=== PATIENT | male | born 1990 | race Caucasian/White ===

== ENCOUNTER → 2016-08-16 | Outpatient (CLI) | payer OTHER, MEDICAID | END | disposition home or self-care (01) | LOC: M OUTALCOH 09:58 | PROVIDERS: ATTEND Psychiatry & Neurology Psychiatry | DX: F11.20 Opioid dependence, uncomplicated (principal) ==

== ENCOUNTER 2016-08-18 10:30 | Emergency (ER) | payer OTHER, MEDICAID ==
[2016-08-18] MEDS ORDERED: ACETAMINOPHEN 325 MG TAB As Ordered ONE (10:47)
[2016-08-18] MEDS ORDERED: IBUPROFEN 600 MG TAB As Ordered ONE (11:19)
[2016-08-18 11:42] LABS: BASO % 0.3 % (0.0-1.0); EOS # 0.1 K/mm3 (0.0-0.50); EOS % 1.4 % (0.0-3.0); LARGE UNSTAINED CELL % 0.6 % (0.0-4.0); LYMPH # 0.3 K/mm3 (1.5-6.5); LYMPH % 4.2 % (24.0-44.0); MEAN CORPUSCULAR HGB CONC 34.4 g/dl (32.0-36.5); MEAN CORPUSCULAR VOLUME 87.3 fl (80.0-96.0); MONO # 0.1 K/mm3 (0.0-0.8); MONO % 1.2 % (0.0-5.0); NEUTROPHILS # 6.5 K/mm3 (1.8-7.7); NEUTROPHILS % 92.4 % (36.0-66.0); PLATELET COUNT, AUTOMATED 175 k/mm3 (150-450); RED CELL DISTRIBUTION WIDTH 12.5 % (11.5-14.5)
[2016-08-18 12:06] LABS: ALBUMIN 3.6 GM/DL (3.2-5.2); ALBUMIN/GLOBULIN RATIO 0.92 (1.00-1.93); ALKALINE PHOSPHATASE 101 U/L (45-117); ALT/SGPT 37 U/L (12-78); AMYLASE 70 U/L (25-115); ANION GAP 7 MEQ/L (8-16); AST/SGOT 20 U/L (15-37); BILIRUBIN,DIRECT 0.2 MG/DL (0.0-0.2); BILIRUBIN,TOTAL 0.5 MG/DL (0.2-1.0); BLOOD UREA NITROGEN 12 MG/DL (7-18); CALCIUM LEVEL 8.6 MG/DL (8.5-10.1); CARBON DIOXIDE LEVEL 27 MEQ/L (21-32); CHLORIDE LEVEL 103 MEQ/L (98-107); CREATININE FOR GFR 1.04 MG/DL (0.70-1.30); GLOMERULAR FILTRATION RATE > 60.0 (>60); GLUCOSE, FASTING 102 MG/DL (70-105); POTASSIUM SERUM 3.7 MEQ/L (3.5-5.1); SODIUM LEVEL 137 MEQ/L (136-145); TOTAL PROTEIN 7.5 GM/DL (6.4-8.2)
--- NOTE | 2016-08-18 12:21 | REP ---
Clinical: Chest pain and fever . Comparison: 03/28/2012. Technique: PA and lateral. Findings: The mediastinum and cardiac silhouette are normal. The lung jones are clear and without acute consolidation, effusion, or pneumothorax. The skeletal structures are intact and normal. Impression: 1. No acute cardiopulmonary process. Signed by Kvng Saleh MD 08/18/2016 12:12 P
[2016-08-18 13:18] LABS: AMPHETAMINES LEVEL URINE NEGATIVE (NEGATIVE); BENZODIAZEPINES URINE NEGATIVE (NEGATIVE); COCAINE METABOLITE URINE NEGATIVE (NEGATIVE); CONTROL LINE INT CTR LINE PRESENT; METHADONE URINE NEGATIVE (NEGATIVE); OPIATES URINE NEGATIVE (NEGATIVE); TRICYCLIC ANTIDEPRESS URINE NEGATIVE (NEGATIVE)
[2016-08-18 13:24] LABS: T UPTAKE 32 % (33-40)
--- NOTE | 2016-08-18 14:18 | EDDOCDS ---
Physician Documentation [facility] Name: Calvin Brown Age: 26 yrs Sex: Male : 1990 Arrival Date: 08/18/2016 Time: 10:30 Bed I7 / Private MD: Kylah Pablo K. Disposition: 08/18/16 13:56 Discharged to Home/Self Care. Impression: Viral infection, unspecified, Opioid abuse. - Condition is Stable. - Discharge Instructions: Opioid Withdrawal, Viral Infections, Opioid Use Disorder. - Medication Reconciliation, Local Pharmacy Hours form. - Follow up: Kylah Pablo; When: 1 - 2 days; Reason: Recheck today's complaints. Follow up: Private Physician; When: As previously arranged; Reason: Continuance of care. Follow up: Emergency Department; When: As needed; Reason: Worsening of conditions. - Problem is new. - Symptoms have improved. - Notes: go directly to outpatient opiod dependency office. call Kylah Pablo's office for follow up for Tuesday. return to ER if worsening condition Historical: - Allergies: No known drug Allergies; - Home Meds: 1. none - PMHx: Anxiety; - PSHx: Tonsillectomy; - Social history: Smoking status: Chewing Tobacco No barriers to communication noted, The patient speaks fluent Albanian, Speaks appropriately for age. - Family history: Not pertinent. - : The pt / caregiver states he / she is not on anticoagulants. Home medication list is obtained from the patient. - Exposure Risk Screening:: None identified. Vital Signs: 08/18 10:32 BP 155 / 74; Pulse 123; Resp 20; Temp 103.9(O); Pulse Ox 98% ; Weight 76.2 kg / 167.99 cmb lbs; Height 6 ft. 2 in. (187.96 cm); Pain 8/10; 11:20 Temp 101.0(O); jrd 12:43 BP 124 / 71; Pulse 82; Resp 18; Temp 99(O); Pulse Ox 98% on R/A; srm 14:03 BP 131 / 69; Pulse 65; Resp 16; Temp 99.1(O); Pulse Ox 100% on R/A; Pain 0/10; jrd 10:32 Body Mass Index 21.57 (76.20 kg, 187.96 cm) cmb MDM: 10:43 Acetaminophen Tablet 975 mg PO once ordered. ar2 11:01 IV Saline Lock ordered. ar2 11:01 -Blood Culture (Adults Only), peripheral from different site, or from device/port/PICC ar2 etc. if present ordered. 11:01 NS 0.9% 1000 ml IV at bolus once ordered. ar2 11:01 Ibuprofen 600 mg PO once ordered. ar2 11:02 -Blood Culture Ordered. EDMS 11:02 Amylase Ordered. EDMS 11:03 CBC with Diff Ordered. EDMS 11:03 Lactic Acid (Mejia tube on ice) Ordered. EDMS 11:03 Liver Profile Ordered. EDMS 11:03 MED Profile Ordered. EDMS 11:03 Urinalysis Ordered. EDMS 11:03 Urine Culture Ordered. EDMS 11:03 -Influenza A&B Rapid Antigen - Nose Ordered. EDMS 11:04 Chest, 2 View (pa\E\lat) Ordered. EDMS 11:12 -Blood Culture (Adults Only), peripheral from different site, or from device/port/PICC jrd etc. if present complete. 11:14 BLOOD CULTURES Ordered. EDMS 11:15 Financial registration complete. mm15 11:16 [facility] Payment Agreement was scanned into Needle and attached to record. mm15 11:19 Consult PFS/PSA/Patch Sander: Resources/Social Work ordered. ar2 11:20 Urine Toxicology Ordered. EDMS 11:53 Consult PFS/PSA/Patch Sander: Resources/Social Work complete. ac 12:09 CBC with Diff Reviewed. ar2 12:09 Liver Profile Reviewed. ar2 12:09 MED Profile Reviewed. ar2 12:09 Amylase Reviewed. ar2 12:09 -Influenza A&B Rapid Antigen - Nose Reviewed. ar2 12:14 Thyroid Profile Ordered. EDMS 12:15 Creatine Phosphokinase Ordered. EDMS 12:45 Lactic Acid (Mejia tube on ice) Reviewed. ar2 12:55 PSA Outpatient Referrals was scanned into Needle and attached to record. jl 13:06 CREATINE PHOSPHOKINASE Ordered. EDMS 13:06 THYROID PROFILE Ordered. EDMS 13:22 Liver Profile Reviewed. ar2 13:22 MED Profile Reviewed. ar2 13:22 Amylase Reviewed. ar2 13:22 Urine Toxicology Reviewed. ar2 13:22 Chest, 2 View (pa\E\lat) Reviewed. ar2 13:24 Urinalysis Reviewed. ar2 13:44 Liver Profile Reviewed. ar2 13:44 MED Profile Reviewed. ar2 13:44 THYROID PROFILE Reviewed. ar2 13:44 Amylase Reviewed. ar2 13:44 CREATINE PHOSPHOKINASE Reviewed. ar2 13:56 BLOOD CULTURES Ordered. EDMS Administered Medications: 10:49 Drug: Acetaminophen 975 mg [acetaminophen 325 mg tablet (3 tabs)] Route: PO; ck1 11:26 Drug: NS 0.9% 1000 ml [sodium chloride 0.9 % intravenous solution] Route: IV; Rate: srm bolus; Site: right antecubital; 14:11 Follow up: IV Status: Completed infusion srm 11:26 Drug: Ibuprofen 600 mg [ibuprofen 600 mg tablet (1 tabs)] Route: PO; srm 12:43 Follow up: BP 124 / 71; Pulse 82 bpm; Resp 18 bpm; Temp 99 Oral; Pulse Ox 98% RA srm Signatures: Dispatcher Med[employer] EDMS Nicole Manley RN RN srm Leonard, Mikhail, PSA PSA Ari López, PSA PSA Jason Mercer RN RN dy Kim-Ashcraft, Connie, RN RN ck1 Elmer Munoz, PA-Jesse PA-Jesse ar2 Jung Schroeder mm15 Cristino Muñiz PCA PCA jrd The chart was reviewed and I authenticate all verbal orders and agree with the evaluation and treatment provided.Corrections: (The following items were deleted from the chart) 13:16 11:19 BLOOD CULTURES ordered. EDMS EDMS Attachments: 11:16 [facility] [place] mm15 MTDD
--- NOTE | 2016-08-18 14:18 | EDDOCDS ---
Nurse's Notes [facility] Name: Calvin Brown Age: 26 yrs Sex: Male : 1990 Arrival Date: 08/18/2016 Time: 10:30 Bed I7 Private MD: Kylah Pablo K. Diagnosis: Viral infection, unspecified;Opioid abuse Presentation: 08/18 10:36 Presenting complaint: Patient states: has history of abusing opiates. last used was dy Tuesday. since Tuesday has been having fevers, shakes, nausea, vomiting, diarrhea. Adult Sepsis Screening: The patient does not have new or worsening altered mentation. Patient's respiratory rate is less than 22. Systolic blood pressure is greater than 100. Patient has a qSOFA score of 0- Negative Sepsis Screen. Suicide/Homicide risk assessment- The patient reports that he/she has a recent or current history of substance abuse. Status: Patient is not a nursing service director or dependent. Transition of care: patient was not received from another setting of care. 10:36 Acuity: ADILSON Level 3 dy 10:36 Method Of Arrival: Walkin/Carried/Asstd dy Triage Assessment: 10:38 General: Appears uncomfortable, Behavior is anxious. Pain: Location: generalized. HIV dy screening NA for this visit Offered previously. Historical: - Allergies: No known drug Allergies; - Home Meds: 1. none - PMHx: Anxiety; - PSHx: Tonsillectomy; - Social history: Smoking status: Chewing Tobacco No barriers to communication noted, The patient speaks fluent Welsh, Speaks appropriately for age. - Family history: Not pertinent. - : The pt / caregiver states he / she is not on anticoagulants. Home medication list is obtained from the patient. - Exposure Risk Screening:: None identified. Screenin:50 Screening information is obtained from the patient. Fall risk: No risks identified. ck1 Assistance ADL's: requires no assistance with activities of daily living. Abuse/DV Screen: The patient / caregiver reports he/she is: not in a situation that causes fear, pain or injury. Nutritional screening: No deficits noted. Advance Directives: Currently, there is no health care proxy. home support is adequate. Assessment: 10:49 General: Appears in no apparent distress, comfortable, Behavior is appropriate for age, ck1 cooperative. Pain: Location: generalized Pain currently is 8 out of 10 on a pain scale. Quality of pain is described as aching. Neurological: Level of Consciousness is awake, alert, obeys commands, Oriented to person, place, time. Respiratory: Respiratory effort is unlabored, Respiratory pattern is regular, symmetrical. GI: Reports nausea, Denies vomiting. Derm: Skin is healthy with good turgor, Skin is pink, warm & dry. 11:34 General: Appears in no apparent distress, Behavior is appropriate for age, cooperative. srm Derm: scarring note to inner aspect RAC. 11:34 GI: Abdomen is non- distended Bowel sounds present X 4 quads. Abd is soft and non srm tender X 4 quads. 12:43 General: Appears in no apparent distress, Behavior is appropriate for age, cooperative. srm Neurological: No deficits noted. EENT: No deficits noted. Cardiovascular: No deficits noted. Respiratory: No deficits noted. GI: No deficits noted. 14:14 Reassessment: Patient states feeling better. Patient states symptoms have improved. srm General: Appears in no apparent distress, Behavior is appropriate for age, cooperative. Neurological: No deficits noted. EENT: No deficits noted. Cardiovascular: No deficits noted. Respiratory: No deficits noted. GI: No deficits noted. Social Work Consult: 12:42 Social Work Note: Pt presented c/o withdrawal from heroin. Pt states his last use was ac Tuesday. Pt reports he is currently enrolled in [facility] outpatient addiction services, is trying to get in to see Dr. Munoz for suboxone treatment. Pt denies SI/HI, no AH/VH, no other drug use reported. Pt to f/u with Dr. Munoz as needed. No further intervention required at this time. Vital Signs: 10:32 BP 155 / 74; Pulse 123; Resp 20; Temp 103.9(O); Pulse Ox 98% ; Weight 76.2 kg; Height 6 cmb ft. 2 in. (187.96 cm); Pain 8/10; 11:20 Temp 101.0(O); jrd 12:43 BP 124 / 71; Pulse 82; Resp 18; Temp 99(O); Pulse Ox 98% on R/A; srm 14:03 BP 131 / 69; Pulse 65; Resp 16; Temp 99.1(O); Pulse Ox 100% on R/A; Pain 0/10; jrd 10:32 Body Mass Index 21.57 (76.20 kg, 187.96 cm) cmb Vitals: 10:32 Log In Time: August 18, 2016 at 10:21. cmb ED Course: 10:32 Patient visited by Estee Roca. cmb 10:32 Kylah Pablo is Private Physician. cmb 10:32 Patient moved to Waiting cmb 10:34 Patient moved to Pre RCE cmb 10:37 Triage Initiated dy 10:44 Patient moved to I7 / 29 mlb1 10:46 Patient visited by Piper Carmichael RN. ck1 10:49 Elmer Munoz PA-C is PHCP. ar2 10:50 Bharat Quigley MD is Attending Physician. ar2 10:50 The patient / caregiver is instructed regarding the plan of care and ED course. ck1 10:51 Patient visited by Elmer Munoz PA-C. ar2 11:16 [facility] Payment Agreement was scanned into GPMESS and attached to record. mm15 11:16 Accompanied by Family Member, Patient has correct armband on for positive srm identification. Placed in gown. Bed in low position. Call light in reach. 11:16 Inserted saline lock: 20 gauge in right antecubital area and blood collected. srm 11:17 -Influenza A&B Rapid Antigen - Nose Sent. srm 11:17 -Blood Culture Sent. srm 11:20 Patient visited by Cristino Muñiz PCA. jrd 11:33 Amylase Sent. srm 11:33 CBC with Diff Sent. srm 11:33 Lactic Acid (Mejia tube on ice) Sent. srm 11:33 Liver Profile Sent. srm 11:35 Patient visited by Nicole Manley, DOMO. srm 11:54 Notified social media content specialist of a meaagn . srm 11:55 Patient visited by Nicole Manley, DOMO. srm 12:42 Urine Toxicology Sent. srm 12:43 Patient visited by Nicole Manley, DOMO. srm 12:43 Thyroid Profile Sent. srm 12:43 Creatine Phosphokinase Sent. srm 12:43 Urinalysis Sent. srm 12:43 Urine Culture Sent. srm 12:55 PSA Outpatient Referrals was scanned into GPMESS and attached to record. jl 13:14 Chest, 2 View (pa\E\lat) Returned. EDMS 13:55 Kylah Pablo is Referral Physician. ar2 14:03 Patient visited by Cristino Muñiz PCA. jrd 14:05 BLOOD CULTURES Sent. jrd 14:14 Discontinued lock intact, bleeding controlled, pressure dressing applied, No srm redness/swelling at site. No procedures done that require assistance. Administered Medications: 10:49 Drug: Acetaminophen 975 mg [acetaminophen 325 mg tablet (3 tabs)] Route: PO; ck1 11:26 Drug: NS 0.9% 1000 ml [sodium chloride 0.9 % intravenous solution] Route: IV; Rate: srm bolus; Site: right antecubital; 14:11 Follow up: IV Status: Completed infusion srm 11:26 Drug: Ibuprofen 600 mg [ibuprofen 600 mg tablet (1 tabs)] Route: PO; srm 12:43 Follow up: BP 124 / 71; Pulse 82 bpm; Resp 18 bpm; Temp 99 Oral; Pulse Ox 98% RA srm Intake: 14:14 IV: 1000.00ml (NS); Total: 1000.00ml. srm Order Results: Lab Order: Amylase; SPEC'M 08/18/16 11:26 Test: AMYLASE; Value: 70; Range: 25-115; Units: U/L; Status: F Lab Order: CBC with Diff; SPEC'M 08/18/16 11:26 Test: WHITE BLOOD COUNT; Value: 7.0; Range: 4.0-10.0; Units: K/mm3; Status: F Test: RED BLOOD COUNT; Value: 4.93; Range: 4.30-6.10; Units: M/mm3; Status: F Test: HEMOGLOBIN; Value: 14.8; Range: 14.0-18.0; Units: g/dl; Status: F Test: HEMATOCRIT; Value: 43.0; Range: 42.0-52.0; Units: %; Status: F Test: MEAN CORPUSCULAR VOLUME; Value: 87.3; Range: 80.0-96.0; Units: fl; Status: F Test: MEAN CORPUSCULAR HEMOGLOBIN; Value: 30.0; Range: 27.0-33.0; Units: pg; Status: F Test: MEAN CORPUSCULAR HGB CONC; Value: 34.4; Range: 32.0-36.5; Units: g/dl; Status: F Test: RED CELL DISTRIBUTION WIDTH; Value: 12.5; Range: 11.5-14.5; Units: %; Status: F Test: PLATELET COUNT, AUTOMATED; Value: 175; Range: 150-450; Units: k/mm3; Status: F Test: NEUTROPHILS %; Value: 92.4; Range: 36.0-66.0; Abnormal: Above high normal; Units: %; Status: F Test: LYMPH %; Value: 4.2; Range: 24.0-44.0; Abnormal: Below low normal; Units: %; Status: F Test: MONO %; Value: 1.2; Range: 0.0-5.0; Units: %; Status: F Test: EOS %; Value: 1.4; Range: 0.0-3.0; Units: %; Status: F Test: BASO %; Value: 0.3; Range: 0.0-1.0; Units: %; Status: F Test: LARGE UNSTAINED CELL %; Value: 0.6; Range: 0.0-4.0; Units: %; Status: F Test: NEUTROPHILS #; Value: 6.5; Range: 1.8-7.7; Units: K/mm3; Status: F Test: LYMPH #; Value: 0.3; Range: 1.5-6.5; Abnormal: Below low normal; Units: K/mm3; Status: F Test: MONO #; Value: 0.1; Range: 0.0-0.8; Units: K/mm3; Status: F Test: EOS #; Value: 0.1; Range: 0.0-0.50; Units: K/mm3; Status: F Test: BASO #; Value: 0.0; Range: 0.0-0.2; Units: K/mm3; Status: F Test: LARGE UNSTAINED CELL #; Value: 0.0; Range: 0.0-0.4; Units: K/mm3; Status: F Lab Order: Lactic Acid (Mejia tube on ice); SPEC'M 08/18/16 11:26 Test: LACTIC ACID LEVEL, LACTATE; Value: 1.4; Range: 0.4-2.0; Units: MMOL/L; Status: F Lab Order: Liver Profile; SPEC'M 08/18/16 11:26 Test: AST/SGOT; Value: 20; Range: 15-37; Units: U/L; Status: F Test: ALT/SGPT; Value: 37; Range: 12-78; Units: U/L; Status: F Test: ALKALINE PHOSPHATASE; Value: 101; Range: 45-117; Units: U/L; Status: F Test: BILIRUBIN,TOTAL; Value: 0.5; Range: 0.2-1.0; Units: MG/DL; Status: F Test: BILIRUBIN,DIRECT; Value: 0.2; Range: 0.0-0.2; Units: MG/DL; Status: F Test: TOTAL PROTEIN; Value: 7.5; Range: 6.4-8.2; Units: GM/DL; Status: F Test: ALBUMIN; Value: 3.6; Range: 3.2-5.2; Units: GM/DL; Status: F Test: ALBUMIN/GLOBULIN RATIO; Value: 0.92; Range: 1.00-1.93; Abnormal: Below low normal; Status: F Lab Order: MED Profile; SPEC'M 08/18/16 11:26 Test: GLUCOSE, FASTING; Value: 102; Range: 70-105; Units: MG/DL; Status: F Test: BLOOD UREA NITROGEN; Value: 12; Range: 7-18; Units: MG/DL; Status: F Test: CREATININE FOR GFR; Value: 1.04; Range: 0.70-1.30; Units: MG/DL; Status: F Test: GLOMERULAR FILTRATION RATE; Value: > 60.0; Range: >60; Status: F Test: SODIUM LEVEL; Value: 137; Range: 136-145; Units: MEQ/L; Status: F Test: POTASSIUM SERUM; Value: 3.7; Range: 3.5-5.1; Units: MEQ/L; Status: F Test: CHLORIDE LEVEL; Value: 103; Range: 98-107; Units: MEQ/L; Status: F Test: CARBON DIOXIDE LEVEL; Value: 27; Range: 21-32; Units: MEQ/L; Status: F Test: ANION GAP; Value: 7; Range: 8-16; Abnormal: Below low normal; Units: MEQ/L; Status: F Test: CALCIUM LEVEL; Value: 8.6; Range: 8.5-10.1; Units: MG/DL; Status: F Test Note: ; Units are mL/min/1.73 m2 Chronic Kidney Disease Staging per NKF: Stage I & II GFR >=60 Normal to Mildly Decreased Stage III GFR 30-59 Moderately Decreased Stage IV GFR 15-29 Severely Decreased Stage V GFR <15 Very Little GFR Left ESRD GFR <15 on [employer] Lab Order: Urinalysis; SPEC'M 08/18/16 12:39 Test: APPEARANCE, URINE; Value: CLEAR; Range: CLEAR; Status: F Test: COLOR, URINE; Value: YELLOW; Range: YELLOW; Status: F Test: PH,URINE; Value: 6.0; Range: 5.0-9.0; Units: UNITS; Status: F Test: SPECIFIC GRAVITY URINE AUTO; Value: 1.011; Range: 1.002-1.035; Status: F Test: PROTEIN, URINE AUTO; Value: NEGATIVE; Range: NEGATIVE; Units: mg/dL; Status: F Test: GLUCOSE, URINE (UA) AUTO; Value: NEGATIVE; Range: NEGATIVE; Units: mg/dL; Status: F Test: KETONE, URINE AUTO; Value: NEGATIVE; Range: NEGATIVE; Units: mg/dL; Status: F Test: UROBILINOGEN, URINE AUTO; Value: 0.2; Range: 0.0-2.0; Units: mg/dL; Status: F Test: BILIRUBIN, URINE AUTO; Value: NEGATIVE; Range: NEGATIVE; Status: F Test: NITRITE, URINE AUTO; Value: NEGATIVE; Range: NEGATIVE; Status: F Test: LEUKOCYTE ESTERASE, URINE AUTO; Value: NEGATIVE; Range: NEGATIVE; Status: F Test: BLOOD, URINE BLOOD; Value: NEGATIVE; Range: NEGATIVE; Status: F Test: WBC, URINE AUTO; Value: 2; Range: 0-3; Units: /HPF; Status: F Test: RBC, URINE AUTO; Value: 1; Range: 0-3; Units: /HPF; Status: F Test: BACTERIA, URINE AUTO; Value: 1+; Range: NEGATIVE; Abnormal: Above high normal; Status: F Test: SQUAMOUS EPITHELIAL CELL UR AU; Value: 0; Range: 0-6; Units: /HPF; Status: F Test: MUCUS, URINE; Value: SMALL; Range: NEGATIVE; Status: F Test: HYALINE CAST, URINE AUTO; Value: 0; Range: 0-1; Units: /LPF; Status: F Lab Order: -Influenza A&B Rapid Antigen - Nose; SPEC'M 08/18/16 11:14 Test: INFLUENZA A RAPID SCR by ICA; Value: INFLUENZA A RESULTS NEGATIVE; Status: F Test: INFLUENZA A RAPID SCR by ICA; Value: Comments:; Status: F Test: INFLUENZA B RAPID SCR by ICA; Value: INFLUENZA B RESULTS NEGATIVE; Status: F Test Note: ; The Influenza test is a direct rapid immunoassay for the qualitative detection of Influenza viral antigen. Cell culture (Viral Culture) testing should be considered to confirm NEGATIVE results and to assist in detecting other viruses that can provide similar clinical symptoms. Please contact the lab within 24 hours ([phone] if confirmatory testing is desired. Lab Order: Urine Toxicology; SPEC'M 08/18/16 12:39 Test: AMPHETAMINES LEVEL URINE; Value: NEGATIVE; Range: NEGATIVE; Status: F Test: BARBITURATES URINE; Value: NEGATIVE; Range: NEGATIVE; Status: F Test: BENZODIAZEPINES URINE; Value: NEGATIVE; Range: NEGATIVE; Status: F Test: CANNABINOIDS URINE; Value: NEGATIVE; Range: NEGATIVE; Status: F Test: COCAINE METABOLITE URINE; Value: NEGATIVE; Range: NEGATIVE; Status: F Test: METHADONE URINE; Value: NEGATIVE; Range: NEGATIVE; Status: F Test: OPIATES URINE; Value: NEGATIVE; Range: NEGATIVE; Status: F Test: TRICYCLIC ANTIDEPRESS URINE; Value: NEGATIVE; Range: NEGATIVE; Status: F Test Note: ; ALL PRESUMPTIVE POSITIVE FINDINGS ARE UNCONFIRMED NORMAL VALUES THRESHOLD IN NG/ML AMPHETAMINES 1000 METHAMPHETAMINES 1000 BARBITURATES 300 BENZODIAZEPINES 300 CANNABINOIDS (THC) 50 COCAINE METABOLITE 300 METHADONE 300 OPIATES 300 PHENCYCLIDINE 25 TRICYCLIC ANTIDEPRESSANTS 1000 RESULTS ARE FOR MEDICAL PURPOSES ONLY. ALL URINE SPECIMENS WILL BE SAVED FOR 3 DAYS. IF CONFIRMATION OF A PRESUMPTIVE POSTIVE SCREEN RESULT IS DESIRED, CALL CHEMISTRY ([phone]) AND REQUEST URINE TO BE SENT TO REFERENCE LAB. FOR A LIST OF CLOSELY RELATED COMPOUNDS PLEASE CALL THE LAB. Lab Order: CREATINE PHOSPHOKINASE; SPEC'M 08/18/16 11:26 Test: CPK CREATINE PHOSPHOKINASE; Value: 53; Range: 39-308; Units: U/L; Status: F Lab Order: THYROID PROFILE; SPEC'M 08/18/16 11:26 Test: T UPTAKE; Value: 32; Range: 33-40; Abnormal: Below low normal; Units: %; Status: F Test: THYROXINE (T4); Value: 8.0; Range: 4.5-12.0; Units: UG/DL; Status: F Test: FREE THYROXINE INDEX; Value: 2.6; Range: 1.4-3.8; Units: %; Status: F Test: THYROID STIMULATING HORMONE; Value: 0.892; Range: 0.358-3.740; Units: uIU/ML; Status: F Radiology Order: Chest, 2 View (pa\E\lat) Test: Chest, 2 View (pa\E\lat) REASON FOR EXAMINATION: fever; Clinical: Chest pain and fever .; ; Comparison: 03/28/2012.; ; Technique: PA and lateral.; ; Findings:; The mediastinum and cardiac silhouette are normal. The lung jones are clear and; without acute consolidation, effusion, or pneumothorax. The skeletal structures; are intact and normal.; ; Impression:; 1. No acute cardiopulmonary process.; ; ; Signed by; Kvng Saleh MD 08/18/2016 12:12 P; Outcome: 13:56 Discharge ordered by Provider. ar2 14:16 Discharge Assessment: Patient awake, alert and oriented x 3. No cognitive and/or srm functional deficits noted. Patient verbalized understanding of disposition instructions. patient administered narcotics - no. The following High Risk Discharge criteria are identified: Yes, PSA consult done prior to d/c. Discharged to home ambulatory, with family. Condition: good Condition: stable Condition: improved. Discharge instructions given to patient, Instructed on discharge instructions, follow up and referral plans. Demonstrated understanding of instructions, Pt was receptive of discharge instructions/ teaching. No special radiology studies were completed. Property sent home with patient. 14:17 Patient left the ED. srm Signatures: Dispatcher [employer] EDMS Nicole Manley, RN RN Mikhail Alva, PSA PSA Ari López, PSA PSA Jason Mercer RN RN dy Barney, Michael B RN RN mlb1 Piper Carmichael RN RN ck1 RobertsElmer kunz PA-C PA-C ar2 Estee Roca cmb Jung Schroeder mm15 Cristino Muñiz, [employer] COMMERCIAL CREDIT ANALYST jrd Corrections: (The following items were deleted from the chart) 13:16 11:33 BLOOD CULTURES sent. srm EDMS MTDD
--- NOTE | 2016-08-20 15:18 | EDDOCDS ---
Physician Documentation [facility] Name: Calvin Brown Age: 26 yrs Sex: Male : 1990 Arrival Date: 08/18/2016 Time: 10:30 Bed I7 / Private MD: Kylah Pablo K. Disposition: 08/18/16 13:56 Discharged to Home/Self Care. Impression: Viral infection, unspecified, Opioid abuse. - Condition is Stable. - Discharge Instructions: Opioid Withdrawal, Viral Infections, Opioid Use Disorder. - Medication Reconciliation, Local Pharmacy Hours form. - Follow up: Kylah Pablo; When: 1 - 2 days; Reason: Recheck today's complaints. Follow up: Private Physician; When: As previously arranged; Reason: Continuance of care. Follow up: Emergency Department; When: As needed; Reason: Worsening of conditions. - Problem is new. - Symptoms have improved. - Notes: go directly to outpatient opiod dependency office. call Kylah Pablo's office for follow up for Tuesday. return to ER if worsening condition Historical: - Allergies: No known drug Allergies; - Home Meds: 1. none - PMHx: Anxiety; - PSHx: Tonsillectomy; - Social history: Smoking status: Chewing Tobacco No barriers to communication noted, The patient speaks fluent Romanian, Speaks appropriately for age. - Family history: Not pertinent. - : The pt / caregiver states he / she is not on anticoagulants. Home medication list is obtained from the patient. - Exposure Risk Screening:: None identified. Vital Signs: 08/18 10:32 BP 155 / 74; Pulse 123; Resp 20; Temp 103.9(O); Pulse Ox 98% ; Weight 76.2 kg / 167.99 cmb lbs; Height 6 ft. 2 in. (187.96 cm); Pain 8/10; 11:20 Temp 101.0(O); jrd 12:43 BP 124 / 71; Pulse 82; Resp 18; Temp 99(O); Pulse Ox 98% on R/A; srm 14:03 BP 131 / 69; Pulse 65; Resp 16; Temp 99.1(O); Pulse Ox 100% on R/A; Pain 0/10; jrd 10:32 Body Mass Index 21.57 (76.20 kg, 187.96 cm) cmb MDM: 10:43 Acetaminophen Tablet 975 mg PO once ordered. ar2 11:01 IV Saline Lock ordered. ar2 11:01 -Blood Culture (Adults Only), peripheral from different site, or from device/port/PICC ar2 etc. if present ordered. 11:01 NS 0.9% 1000 ml IV at bolus once ordered. ar2 11:01 Ibuprofen 600 mg PO once ordered. ar2 11:02 -Blood Culture Ordered. EDMS 11:02 Amylase Ordered. EDMS 11:03 CBC with Diff Ordered. EDMS 11:03 Lactic Acid (Mejia tube on ice) Ordered. EDMS 11:03 Liver Profile Ordered. EDMS 11:03 MED Profile Ordered. EDMS 11:03 Urinalysis Ordered. EDMS 11:03 Urine Culture Ordered. EDMS 11:03 -Influenza A&B Rapid Antigen - Nose Ordered. EDMS 11:04 Chest, 2 View (pa\E\lat) Ordered. EDMS 11:12 -Blood Culture (Adults Only), peripheral from different site, or from device/port/PICC jrd etc. if present complete. 11:14 BLOOD CULTURES Ordered. EDMS 11:15 Financial registration complete. mm15 11:16 [facility] Payment Agreement was scanned into [employer] and attached to record. mm15 11:19 Consult PFS/PSA/Animal Care Worker: Resources/Social Work ordered. ar2 11:20 Urine Toxicology Ordered. EDMS 11:53 Consult PFS/PSA/Animal Care Worker: Resources/Social Work complete. ac 12:09 CBC with Diff Reviewed. ar2 12:09 Liver Profile Reviewed. ar2 12:09 MED Profile Reviewed. ar2 12:09 Amylase Reviewed. ar2 12:09 -Influenza A&B Rapid Antigen - Nose Reviewed. ar2 12:14 Thyroid Profile Ordered. EDMS 12:15 Creatine Phosphokinase Ordered. EDMS 12:45 Lactic Acid (Mejia tube on ice) Reviewed. ar2 12:55 PSA Outpatient Referrals was scanned into [employer] and attached to record. jl 13:06 CREATINE PHOSPHOKINASE Ordered. EDMS 13:06 THYROID PROFILE Ordered. EDMS 13:22 Liver Profile Reviewed. ar2 13:22 MED Profile Reviewed. ar2 13:22 Amylase Reviewed. ar2 13:22 Urine Toxicology Reviewed. ar2 13:22 Chest, 2 View (pa\E\lat) Reviewed. ar2 13:24 Urinalysis Reviewed. ar2 13:44 Liver Profile Reviewed. ar2 13:44 MED Profile Reviewed. ar2 13:44 THYROID PROFILE Reviewed. ar2 13:44 Amylase Reviewed. ar2 13:44 CREATINE PHOSPHOKINASE Reviewed. ar2 13:56 BLOOD CULTURES Ordered. EDMS 15:11 T-Sheet-- Draft Copy was scanned into [employer] and attached to record. gb 15:11 Radiology Report was scanned into [employer] and attached to record. gb Administered Medications: 10:49 Drug: Acetaminophen 975 mg [acetaminophen 325 mg tablet (3 tabs)] Route: PO; ck1 11:26 Drug: NS 0.9% 1000 ml [sodium chloride 0.9 % intravenous solution] Route: IV; Rate: srm bolus; Site: right antecubital; 14:11 Follow up: IV Status: Completed infusion srm 11:26 Drug: Ibuprofen 600 mg [ibuprofen 600 mg tablet (1 tabs)] Route: PO; srm 12:43 Follow up: BP 124 / 71; Pulse 82 bpm; Resp 18 bpm; Temp 99 Oral; Pulse Ox 98% RA srm Signatures: Dispatcher [employer] EDMS Nicole Manley, DOMO RN srm Leonard, Mikhail, PSA PSA ac AdonayAri, PSA PSA jl Marilynn Cote, Reg Reg gb Jason Villasenor RN RN dy Kim-Ashcraft, Connie, RN RN ck1 Elmer Munoz, LUCA PARamya ar2 Jung Schroeder mm15 Cristino Muñiz PCA PCA jrd The chart was reviewed and I authenticate all verbal orders and agree with the evaluation and treatment provided.Corrections: (The following items were deleted from the chart) 13:16 11:19 BLOOD CULTURES ordered. EDMS EDMS Attachments: 11:16 [facility] [place] mm15 15:11 T-Sheet-- Draft Copy gb Chart Complete MTDD
--- NOTE | 2016-08-20 15:18 | EDDOCDS ---
Physician Documentation [facility] Name: Calvin Brown Age: 26 yrs Sex: Male : 1990 Arrival Date: 08/18/2016 Time: 10:30 Bed I7 / Private MD: Kylah Pablo K. Disposition: 08/18/16 13:56 Discharged to Home/Self Care. Impression: Viral infection, unspecified, Opioid abuse. - Condition is Stable. - Discharge Instructions: Opioid Withdrawal, Viral Infections, Opioid Use Disorder. - Medication Reconciliation, Local Pharmacy Hours form. - Follow up: Kylah Pablo; When: 1 - 2 days; Reason: Recheck today's complaints. Follow up: Private Physician; When: As previously arranged; Reason: Continuance of care. Follow up: Emergency Department; When: As needed; Reason: Worsening of conditions. - Problem is new. - Symptoms have improved. - Notes: go directly to outpatient opiod dependency office. call Kylah Pablo's office for follow up for Tuesday. return to ER if worsening condition Historical: - Allergies: No known drug Allergies; - Home Meds: 1. none - PMHx: Anxiety; - PSHx: Tonsillectomy; - Social history: Smoking status: Chewing Tobacco No barriers to communication noted, The patient speaks fluent Frisian, Speaks appropriately for age. - Family history: Not pertinent. - : The pt / caregiver states he / she is not on anticoagulants. Home medication list is obtained from the patient. - Exposure Risk Screening:: None identified. Vital Signs: 08/18 10:32 BP 155 / 74; Pulse 123; Resp 20; Temp 103.9(O); Pulse Ox 98% ; Weight 76.2 kg / 167.99 cmb lbs; Height 6 ft. 2 in. (187.96 cm); Pain 8/10; 11:20 Temp 101.0(O); jrd 12:43 BP 124 / 71; Pulse 82; Resp 18; Temp 99(O); Pulse Ox 98% on R/A; srm 14:03 BP 131 / 69; Pulse 65; Resp 16; Temp 99.1(O); Pulse Ox 100% on R/A; Pain 0/10; jrd 10:32 Body Mass Index 21.57 (76.20 kg, 187.96 cm) cmb MDM: 10:43 Acetaminophen Tablet 975 mg PO once ordered. ar2 11:01 IV Saline Lock ordered. ar2 11:01 -Blood Culture (Adults Only), peripheral from different site, or from device/port/PICC ar2 etc. if present ordered. 11:01 NS 0.9% 1000 ml IV at bolus once ordered. ar2 11:01 Ibuprofen 600 mg PO once ordered. ar2 11:02 -Blood Culture Ordered. EDMS 11:02 Amylase Ordered. EDMS 11:03 CBC with Diff Ordered. EDMS 11:03 Lactic Acid (Mejia tube on ice) Ordered. EDMS 11:03 Liver Profile Ordered. EDMS 11:03 MED Profile Ordered. EDMS 11:03 Urinalysis Ordered. EDMS 11:03 Urine Culture Ordered. EDMS 11:03 -Influenza A&B Rapid Antigen - Nose Ordered. EDMS 11:04 Chest, 2 View (pa\E\lat) Ordered. EDMS 11:12 -Blood Culture (Adults Only), peripheral from different site, or from device/port/PICC jrd etc. if present complete. 11:14 BLOOD CULTURES Ordered. EDMS 11:15 Financial registration complete. mm15 11:16 [facility] Payment Agreement was scanned into [email or web address] and attached to record. mm15 11:19 Consult PFS/PSA/Sow Manager: Resources/Social Work ordered. ar2 11:20 Urine Toxicology Ordered. EDMS 11:53 Consult PFS/PSA/Sow Manager: Resources/Social Work complete. ac 12:09 CBC with Diff Reviewed. ar2 12:09 Liver Profile Reviewed. ar2 12:09 MED Profile Reviewed. ar2 12:09 Amylase Reviewed. ar2 12:09 -Influenza A&B Rapid Antigen - Nose Reviewed. ar2 12:14 Thyroid Profile Ordered. EDMS 12:15 Creatine Phosphokinase Ordered. EDMS 12:45 Lactic Acid (Mejia tube on ice) Reviewed. ar2 12:55 PSA Outpatient Referrals was scanned into [email or web address] and attached to record. jl 13:06 CREATINE PHOSPHOKINASE Ordered. EDMS 13:06 THYROID PROFILE Ordered. EDMS 13:22 Liver Profile Reviewed. ar2 13:22 MED Profile Reviewed. ar2 13:22 Amylase Reviewed. ar2 13:22 Urine Toxicology Reviewed. ar2 13:22 Chest, 2 View (pa\E\lat) Reviewed. ar2 13:24 Urinalysis Reviewed. ar2 13:44 Liver Profile Reviewed. ar2 13:44 MED Profile Reviewed. ar2 13:44 THYROID PROFILE Reviewed. ar2 13:44 Amylase Reviewed. ar2 13:44 CREATINE PHOSPHOKINASE Reviewed. ar2 13:56 BLOOD CULTURES Ordered. EDMS 15:11 T-Sheet-- Draft Copy was scanned into [email or web address] and attached to record. gb 15:11 Radiology Report was scanned into [email or web address] and attached to record. gb Administered Medications: 10:49 Drug: Acetaminophen 975 mg [acetaminophen 325 mg tablet (3 tabs)] Route: PO; ck1 11:26 Drug: NS 0.9% 1000 ml [sodium chloride 0.9 % intravenous solution] Route: IV; Rate: srm bolus; Site: right antecubital; 14:11 Follow up: IV Status: Completed infusion srm 11:26 Drug: Ibuprofen 600 mg [ibuprofen 600 mg tablet (1 tabs)] Route: PO; srm 12:43 Follow up: BP 124 / 71; Pulse 82 bpm; Resp 18 bpm; Temp 99 Oral; Pulse Ox 98% RA srm Signatures: Dispatcher [employer] EDMS Nicole Manley, DOMO RN srm Leonard, Mikhail, PSA PSA ac AdonayAri, PSA PSA jl Marilynn Cote, Reg Reg gb Jason Villasenor RN RN dy Kim-Ashcraft, Connie, RN RN ck1 Elmer Munoz, LUCA PARamya ar2 Jung Schroeder mm15 Cristino Muñiz PCA PCA jrd The chart was reviewed and I authenticate all verbal orders and agree with the evaluation and treatment provided.Corrections: (The following items were deleted from the chart) 13:16 11:19 BLOOD CULTURES ordered. EDMS EDMS Attachments: 11:16 [facility] Payment Agreement mm15 15:11 T-Sheet-- Draft Copy gb Chart Complete MTDD
--- NOTE | 2016-08-20 15:18 | EDDOCDS ---
Nurse's Notes [facility] Name: Calvin Brown Age: 26 yrs Sex: Male : 1990 Arrival Date: 08/18/2016 Time: 10:30 Bed I7 Private MD: Kylah Pablo K. Diagnosis: Viral infection, unspecified;Opioid abuse Presentation: 08/18 10:36 Presenting complaint: Patient states: has history of abusing opiates. last used was dy Tuesday. since Tuesday has been having fevers, shakes, nausea, vomiting, diarrhea. Adult Sepsis Screening: The patient does not have new or worsening altered mentation. Patient's respiratory rate is less than 22. Systolic blood pressure is greater than 100. Patient has a qSOFA score of 0- Negative Sepsis Screen. Suicide/Homicide risk assessment- The patient reports that he/she has a recent or current history of substance abuse. Status: Patient is not a service coordinator or dependent. Transition of care: patient was not received from another setting of care. 10:36 Acuity: ADILSON Level 3 dy 10:36 Method Of Arrival: Walkin/Carried/Asstd dy Triage Assessment: 10:38 General: Appears uncomfortable, Behavior is anxious. Pain: Location: generalized. HIV dy screening NA for this visit Offered previously. Historical: - Allergies: No known drug Allergies; - Home Meds: 1. none - PMHx: Anxiety; - PSHx: Tonsillectomy; - Social history: Smoking status: Chewing Tobacco No barriers to communication noted, The patient speaks fluent Belarusian, Speaks appropriately for age. - Family history: Not pertinent. - : The pt / caregiver states he / she is not on anticoagulants. Home medication list is obtained from the patient. - Exposure Risk Screening:: None identified. Screenin:50 Screening information is obtained from the patient. Fall risk: No risks identified. ck1 Assistance ADL's: requires no assistance with activities of daily living. Abuse/DV Screen: The patient / caregiver reports he/she is: not in a situation that causes fear, pain or injury. Nutritional screening: No deficits noted. Advance Directives: Currently, there is no health care proxy. home support is adequate. Assessment: 10:49 General: Appears in no apparent distress, comfortable, Behavior is appropriate for age, ck1 cooperative. Pain: Location: generalized Pain currently is 8 out of 10 on a pain scale. Quality of pain is described as aching. Neurological: Level of Consciousness is awake, alert, obeys commands, Oriented to person, place, time. Respiratory: Respiratory effort is unlabored, Respiratory pattern is regular, symmetrical. GI: Reports nausea, Denies vomiting. Derm: Skin is healthy with good turgor, Skin is pink, warm & dry. 11:34 General: Appears in no apparent distress, Behavior is appropriate for age, cooperative. srm Derm: scarring note to inner aspect RAC. 11:34 GI: Abdomen is non- distended Bowel sounds present X 4 quads. Abd is soft and non srm tender X 4 quads. 12:43 General: Appears in no apparent distress, Behavior is appropriate for age, cooperative. srm Neurological: No deficits noted. EENT: No deficits noted. Cardiovascular: No deficits noted. Respiratory: No deficits noted. GI: No deficits noted. 14:14 Reassessment: Patient states feeling better. Patient states symptoms have improved. srm General: Appears in no apparent distress, Behavior is appropriate for age, cooperative. Neurological: No deficits noted. EENT: No deficits noted. Cardiovascular: No deficits noted. Respiratory: No deficits noted. GI: No deficits noted. Social Work Consult: 12:42 Social Work Note: Pt presented c/o withdrawal from heroin. Pt states his last use was ac Tuesday. Pt reports he is currently enrolled in [facility] outpatient addiction services, is trying to get in to see Dr. Munoz for suboxone treatment. Pt denies SI/HI, no AH/VH, no other drug use reported. Pt to f/u with Dr. Munoz as needed. No further intervention required at this time. 14:30 Social Work Note: Dr. Munoz phoned PSA & advised that he would see patient today in his jl office following his D/C from ED. Patient & family were made aware of this & expressed intent to follow up as advised. Vital Signs: 10:32 BP 155 / 74; Pulse 123; Resp 20; Temp 103.9(O); Pulse Ox 98% ; Weight 76.2 kg; Height 6 cmb ft. 2 in. (187.96 cm); Pain 8/10; 11:20 Temp 101.0(O); jrd 12:43 BP 124 / 71; Pulse 82; Resp 18; Temp 99(O); Pulse Ox 98% on R/A; srm 14:03 BP 131 / 69; Pulse 65; Resp 16; Temp 99.1(O); Pulse Ox 100% on R/A; Pain 0/10; jrd 10:32 Body Mass Index 21.57 (76.20 kg, 187.96 cm) cmb Vitals: 10:32 Log In Time: August 18, 2016 at 10:21. cmb ED Course: 10:32 Patient visited by Estee Roca. cmb 10:32 Kylah Pablo is Private Physician. cmb 10:32 Patient moved to Waiting cmb 10:34 Patient moved to Pre RCE cmb 10:37 Triage Initiated dy 10:44 Patient moved to I7 / 29 mlb1 10:46 Patient visited by Piper Carmichael RN. ck1 10:49 [facility] ar2 10:50 Bharat Quigley MD is Attending Physician. ar2 10:50 The patient / caregiver is instructed regarding the plan of care and ED course. ck1 10:51 Patient visited by Elmer Munoz PA-C. ar2 11:16 [facility] [place] was scanned into [employer] and attached to record. mm15 11:16 Accompanied by Family Member, Patient has correct armband on for positive srm identification. Placed in gown. Bed in low position. Call light in reach. 11:16 Inserted saline lock: 20 gauge in right antecubital area and blood collected. srm 11:17 -Influenza A&B Rapid Antigen - Nose Sent. srm 11:17 -Blood Culture Sent. srm 11:20 Patient visited by Cristino Muñiz PCA. jrd 11:33 Amylase Sent. srm 11:33 CBC with Diff Sent. srm 11:33 Lactic Acid (Mejia tube on ice) Sent. srm 11:33 Liver Profile Sent. srm 11:35 Patient visited by Nicole Manley, DOMO. srm 11:54 Notified bilingual social worker of a meagan . srm 11:55 Patient visited by Nicole Manley, DOMO. srm 12:42 Urine Toxicology Sent. srm 12:43 Patient visited by Nicole Manley, DOMO. srm 12:43 Thyroid Profile Sent. srm 12:43 Creatine Phosphokinase Sent. srm 12:43 Urinalysis Sent. srm 12:43 Urine Culture Sent. srm 12:55 PSA Outpatient Referrals was scanned into [employer] and attached to record. jl 13:14 Chest, 2 View (pa\E\lat) Returned. EDMS 13:55 Kylah Pablo is Referral Physician. ar2 14:03 Patient visited by Cristino Muñiz PCA. jrd 14:05 BLOOD CULTURES Sent. jrd 14:14 Discontinued lock intact, bleeding controlled, pressure dressing applied, No srm redness/swelling at site. No procedures done that require assistance. 15:11 T-Sheet-- Draft Copy was scanned into [employer] and attached to record. gb 15:11 Radiology Report was scanned into [employer] and attached to record. gb Administered Medications: 10:49 Drug: Acetaminophen 975 mg [acetaminophen 325 mg tablet (3 tabs)] Route: PO; ck1 11:26 Drug: NS 0.9% 1000 ml [sodium chloride 0.9 % intravenous solution] Route: IV; Rate: srm bolus; Site: right antecubital; 14:11 Follow up: IV Status: Completed infusion srm 11:26 Drug: Ibuprofen 600 mg [ibuprofen 600 mg tablet (1 tabs)] Route: PO; srm 12:43 Follow up: BP 124 / 71; Pulse 82 bpm; Resp 18 bpm; Temp 99 Oral; Pulse Ox 98% RA srm Intake: 14:14 IV: 1000.00ml (NS); Total: 1000.00ml. srm Order Results: Lab Order: -Blood Culture; SPEC'M 08/18/16 11:14 Test: BLOOD CULTURE; Value: No growth after 24 hours . All specimens observed; Status: F Test: BLOOD CULTURE; Value: for 5 days. Results final at that time.; Status: F Test: BLOOD CULTURE; Value: No Growth after 48 hours. All Specimens observed; Status: F Test: BLOOD CULTURE; Value: for 7 days. Results final at that time.; Status: F Lab Order: Amylase; SPEC'M 08/18/16 11:26 Test: AMYLASE; Value: 70; Range: 25-115; Units: U/L; Status: F Lab Order: CBC with Diff; SPEC'M 08/18/16 11:26 Test: WHITE BLOOD COUNT; Value: 7.0; Range: 4.0-10.0; Units: K/mm3; Status: F Test: RED BLOOD COUNT; Value: 4.93; Range: 4.30-6.10; Units: M/mm3; Status: F Test: HEMOGLOBIN; Value: 14.8; Range: 14.0-18.0; Units: g/dl; Status: F Test: HEMATOCRIT; Value: 43.0; Range: 42.0-52.0; Units: %; Status: F Test: MEAN CORPUSCULAR VOLUME; Value: 87.3; Range: 80.0-96.0; Units: fl; Status: F Test: MEAN CORPUSCULAR HEMOGLOBIN; Value: 30.0; Range: 27.0-33.0; Units: pg; Status: F Test: MEAN CORPUSCULAR HGB CONC; Value: 34.4; Range: 32.0-36.5; Units: g/dl; Status: F Test: RED CELL DISTRIBUTION WIDTH; Value: 12.5; Range: 11.5-14.5; Units: %; Status: F Test: PLATELET COUNT, AUTOMATED; Value: 175; Range: 150-450; Units: k/mm3; Status: F Test: NEUTROPHILS %; Value: 92.4; Range: 36.0-66.0; Abnormal: Above high normal; Units: %; Status: F Test: LYMPH %; Value: 4.2; Range: 24.0-44.0; Abnormal: Below low normal; Units: %; Status: F Test: MONO %; Value: 1.2; Range: 0.0-5.0; Units: %; Status: F Test: EOS %; Value: 1.4; Range: 0.0-3.0; Units: %; Status: F Test: BASO %; Value: 0.3; Range: 0.0-1.0; Units: %; Status: F Test: LARGE UNSTAINED CELL %; Value: 0.6; Range: 0.0-4.0; Units: %; Status: F Test: NEUTROPHILS #; Value: 6.5; Range: 1.8-7.7; Units: K/mm3; Status: F Test: LYMPH #; Value: 0.3; Range: 1.5-6.5; Abnormal: Below low normal; Units: K/mm3; Status: F Test: MONO #; Value: 0.1; Range: 0.0-0.8; Units: K/mm3; Status: F Test: EOS #; Value: 0.1; Range: 0.0-0.50; Units: K/mm3; Status: F Test: BASO #; Value: 0.0; Range: 0.0-0.2; Units: K/mm3; Status: F Test: LARGE UNSTAINED CELL #; Value: 0.0; Range: 0.0-0.4; Units: K/mm3; Status: F Lab Order: Lactic Acid (Mejia tube on ice); SPEC'M 08/18/16 11:26 Test: LACTIC ACID LEVEL, LACTATE; Value: 1.4; Range: 0.4-2.0; Units: MMOL/L; Status: F Lab Order: Liver Profile; SPEC'M 08/18/16 11:26 Test: AST/SGOT; Value: 20; Range: 15-37; Units: U/L; Status: F Test: ALT/SGPT; Value: 37; Range: 12-78; Units: U/L; Status: F Test: ALKALINE PHOSPHATASE; Value: 101; Range: 45-117; Units: U/L; Status: F Test: BILIRUBIN,TOTAL; Value: 0.5; Range: 0.2-1.0; Units: MG/DL; Status: F Test: BILIRUBIN,DIRECT; Value: 0.2; Range: 0.0-0.2; Units: MG/DL; Status: F Test: TOTAL PROTEIN; Value: 7.5; Range: 6.4-8.2; Units: GM/DL; Status: F Test: ALBUMIN; Value: 3.6; Range: 3.2-5.2; Units: GM/DL; Status: F Test: ALBUMIN/GLOBULIN RATIO; Value: 0.92; Range: 1.00-1.93; Abnormal: Below low normal; Status: F Lab Order: MED Profile; SPEC'M 08/18/16 11:26 Test: GLUCOSE, FASTING; Value: 102; Range: 70-105; Units: MG/DL; Status: F Test: BLOOD UREA NITROGEN; Value: 12; Range: 7-18; Units: MG/DL; Status: F Test: CREATININE FOR GFR; Value: 1.04; Range: 0.70-1.30; Units: MG/DL; Status: F Test: GLOMERULAR FILTRATION RATE; Value: > 60.0; Range: >60; Status: F Test: SODIUM LEVEL; Value: 137; Range: 136-145; Units: MEQ/L; Status: F Test: POTASSIUM SERUM; Value: 3.7; Range: 3.5-5.1; Units: MEQ/L; Status: F Test: CHLORIDE LEVEL; Value: 103; Range: 98-107; Units: MEQ/L; Status: F Test: CARBON DIOXIDE LEVEL; Value: 27; Range: 21-32; Units: MEQ/L; Status: F Test: ANION GAP; Value: 7; Range: 8-16; Abnormal: Below low normal; Units: MEQ/L; Status: F Test: CALCIUM LEVEL; Value: 8.6; Range: 8.5-10.1; Units: MG/DL; Status: F Test Note: ; Units are mL/min/1.73 m2 Chronic Kidney Disease Staging per NKF: Stage I & II GFR >=60 Normal to Mildly Decreased Stage III GFR 30-59 Moderately Decreased Stage IV GFR 15-29 Severely Decreased Stage V GFR <15 Very Little GFR Left ESRD GFR <15 on C[employer] SALES [employer] Lab Order: Urinalysis; SPEC'M 08/18/16 12:39 Test: APPEARANCE, URINE; Value: CLEAR; Range: CLEAR; Status: F Test: COLOR, URINE; Value: YELLOW; Range: YELLOW; Status: F Test: PH,URINE; Value: 6.0; Range: 5.0-9.0; Units: UNITS; Status: F Test: SPECIFIC GRAVITY URINE AUTO; Value: 1.011; Range: 1.002-1.035; Status: F Test: PROTEIN, URINE AUTO; Value: NEGATIVE; Range: NEGATIVE; Units: mg/dL; Status: F Test: GLUCOSE, URINE (UA) AUTO; Value: NEGATIVE; Range: NEGATIVE; Units: mg/dL; Status: F Test: KETONE, URINE AUTO; Value: NEGATIVE; Range: NEGATIVE; Units: mg/dL; Status: F Test: UROBILINOGEN, URINE AUTO; Value: 0.2; Range: 0.0-2.0; Units: mg/dL; Status: F Test: BILIRUBIN, URINE AUTO; Value: NEGATIVE; Range: NEGATIVE; Status: F Test: NITRITE, URINE AUTO; Value: NEGATIVE; Range: NEGATIVE; Status: F Test: LEUKOCYTE ESTERASE, URINE AUTO; Value: NEGATIVE; Range: NEGATIVE; Status: F Test: BLOOD, URINE BLOOD; Value: NEGATIVE; Range: NEGATIVE; Status: F Test: WBC, URINE AUTO; Value: 2; Range: 0-3; Units: /HPF; Status: F Test: RBC, URINE AUTO; Value: 1; Range: 0-3; Units: /HPF; Status: F Test: BACTERIA, URINE AUTO; Value: 1+; Range: NEGATIVE; Abnormal: Above high normal; Status: F Test: SQUAMOUS EPITHELIAL CELL UR AU; Value: 0; Range: 0-6; Units: /HPF; Status: F Test: MUCUS, URINE; Value: SMALL; Range: NEGATIVE; Status: F Test: HYALINE CAST, URINE AUTO; Value: 0; Range: 0-1; Units: /LPF; Status: F Lab Order: Urine Culture; SPEC'M 08/18/16 12:39 Test: URINE CULTURE; Value: URINE CULTURE RESULT NO GROWTH; Status: F Lab Order: -Influenza A&B Rapid Antigen - Nose; SPEC'M 08/18/16 11:14 Test: INFLUENZA A RAPID SCR by ICA; Value: INFLUENZA A RESULTS NEGATIVE; Status: F Test: INFLUENZA A RAPID SCR by ICA; Value: Comments:; Status: F Test: INFLUENZA B RAPID SCR by ICA; Value: INFLUENZA B RESULTS NEGATIVE; Status: F Test Note: ; The Influenza test is a direct rapid immunoassay for the qualitative detection of Influenza viral antigen. Cell culture (Viral Culture) testing should be considered to confirm NEGATIVE results and to assist in detecting other viruses that can provide similar clinical symptoms. Please contact the lab within 24 hours ([phone]) if confirmatory testing is desired. Lab Order: BLOOD CULTURES; SPEC'M 08/18/16 11:26 Test: BLOOD CULTURE; Value: No growth after 24 hours . All specimens observed; Status: F Test: BLOOD CULTURE; Value: for 5 days. Results final at that time.; Status: F Test: BLOOD CULTURE; Value: No Growth after 48 hours. All Specimens observed; Status: F Test: BLOOD CULTURE; Value: for 7 days. Results final at that time.; Status: F Lab Order: Urine Toxicology; SPEC'M 08/18/16 12:39 Test: AMPHETAMINES LEVEL URINE; Value: NEGATIVE; Range: NEGATIVE; Status: F Test: BARBITURATES URINE; Value: NEGATIVE; Range: NEGATIVE; Status: F Test: BENZODIAZEPINES URINE; Value: NEGATIVE; Range: NEGATIVE; Status: F Test: CANNABINOIDS URINE; Value: NEGATIVE; Range: NEGATIVE; Status: F Test: COCAINE METABOLITE URINE; Value: NEGATIVE; Range: NEGATIVE; Status: F Test: METHADONE URINE; Value: NEGATIVE; Range: NEGATIVE; Status: F Test: OPIATES URINE; Value: NEGATIVE; Range: NEGATIVE; Status: F Test: TRICYCLIC ANTIDEPRESS URINE; Value: NEGATIVE; Range: NEGATIVE; Status: F Test Note: ; ALL PRESUMPTIVE POSITIVE FINDINGS ARE UNCONFIRMED NORMAL VALUES THRESHOLD IN NG/ML AMPHETAMINES 1000 METHAMPHETAMINES 1000 BARBITURATES 300 BENZODIAZEPINES 300 CANNABINOIDS (THC) 50 COCAINE METABOLITE 300 METHADONE 300 OPIATES 300 PHENCYCLIDINE 25 TRICYCLIC ANTIDEPRESSANTS 1000 RESULTS ARE FOR MEDICAL PURPOSES ONLY. ALL URINE SPECIMENS WILL BE SAVED FOR 3 DAYS. IF CONFIRMATION OF A PRESUMPTIVE POSTIVE SCREEN RESULT IS DESIRED, CALL CHEMISTRY ([phone]) AND REQUEST URINE TO BE SENT TO REFERENCE LAB. FOR A LIST OF CLOSELY RELATED COMPOUNDS PLEASE CALL THE LAB. Lab Order: CREATINE PHOSPHOKINASE; SPEC'M 08/18/16 11:26 Test: CPK CREATINE PHOSPHOKINASE; Value: 53; Range: 39-308; Units: U/L; Status: F Lab Order: THYROID PROFILE; SPEC'M 08/18/16 11:26 Test: T UPTAKE; Value: 32; Range: 33-40; Abnormal: Below low normal; Units: %; Status: F Test: THYROXINE (T4); Value: 8.0; Range: 4.5-12.0; Units: UG/DL; Status: F Test: FREE THYROXINE INDEX; Value: 2.6; Range: 1.4-3.8; Units: %; Status: F Test: THYROID STIMULATING HORMONE; Value: 0.892; Range: 0.358-3.740; Units: uIU/ML; Status: F Lab Order: BLOOD CULTURES; SPEC'M 08/18/16 14:05 Test: BLOOD CULTURE; Value: No growth after 24 hours . All specimens observed; Status: F Test: BLOOD CULTURE; Value: for 5 days. Results final at that time.; Status: F Test: BLOOD CULTURE; Value: No Growth after 48 hours. All Specimens observed; Status: F Test: BLOOD CULTURE; Value: for 7 days. Results final at that time.; Status: F Radiology Order: Chest, 2 View (pa\E\lat) Test: Chest, 2 View (pa\E\lat) REASON FOR EXAMINATION: fever; Clinical: Chest pain and fever .; ; Comparison: 03/28/2012.; ; Technique: PA and lateral.; ; Findings:; The mediastinum and cardiac silhouette are normal. The lung jones are clear and; without acute consolidation, effusion, or pneumothorax. The skeletal structures; are intact and normal.; ; Impression:; 1. No acute cardiopulmonary process.; ; ; Signed by; Kvng Saleh MD 08/18/2016 12:12 P; Outcome: 13:56 Discharge ordered by Provider. ar2 14:16 Discharge Assessment: Patient awake, alert and oriented x 3. No cognitive and/or srm functional deficits noted. Patient verbalized understanding of disposition instructions. patient administered narcotics - no. The following High Risk Discharge criteria are identified: Yes, PSA consult done prior to d/c. Discharged to home ambulatory, with family. Condition: good Condition: stable Condition: improved. Discharge instructions given to patient, Instructed on discharge instructions, follow up and referral plans. Demonstrated understanding of instructions, Pt was receptive of discharge instructions/ teaching. No special radiology studies were completed. Property sent home with patient. 14:17 Patient left the ED. [facility] Signatures: Dispatcher [employer] EDMS Nicole Manley, RN RN srm Mikhail Valle, PSA PSA ac Ari Urias, PSA PSA jl Marilynn Cote, Reg Reg Jason Ayala, RN Jose F Cole RN RN mlb1 Piper Carmichael RN RN ck1 Elmer Munoz, PA-C PA-C ar2 Estee Roca Marlynn mm15 Cristino Muñiz, EUFEMIA QUALIFIED CRAFT WORKER ELECTRICIAN jrd Corrections: (The following items were deleted from the chart) 13:16 11:33 BLOOD CULTURES sent. [facility] EDMS Chart Complete MTDD
== END 2016-08-18 14:17 | disposition home or self-care (01) ==
LOC: M ED 10:30
DX: B34.9 Viral infection, unspecified (principal); F11.10 Opioid abuse, uncomplicated; R11.2 Nausea with vomiting, unspecified; F41.9 Anxiety disorder, unspecified; Z72.0 Tobacco use

== ENCOUNTER 2016-09-06 08:45 | Outpatient (RCR) | payer OTHER, MEDICAID | END 2016-09-07 | disposition home or self-care (01) | LOC: M OUTALCOH 08:45 | PROVIDERS: ATTEND Psychiatry & Neurology Psychiatry | DX: F11.20 Opioid dependence, uncomplicated (principal); Z72.0 Tobacco use ==

== ENCOUNTER 2016-10-01 08:45 | Outpatient (RCR) | payer OTHER, MEDICAID | END 2016-10-05 | LOC: M OUTALCOH 08:45 | PROVIDERS: ATTEND Psychiatry & Neurology Psychiatry | DX: F11.20 Opioid dependence, uncomplicated (principal); Z72.0 Tobacco use ==

== ENCOUNTER 2016-11-03 16:00 | Outpatient (RCR) | payer OTHER, MEDICAID | END 2016-11-05 | LOC: M OUTALCOH 16:00 | PROVIDERS: ATTEND Psychiatry & Neurology Psychiatry | DX: F11.20 Opioid dependence, uncomplicated (principal); Z72.0 Tobacco use ==

== ENCOUNTER 2018-09-14 12:03 | Emergency (ER) | payer OTHER, BC ==
[~2018-09-14] VITALS: Ht 188 cm; Wt 82.3 kg
[2018-09-14] MEDS ORDERED: SUBO8MIS (12:07)
[2018-09-14] MEDS ORDERED: LIDOCAINE 1% MDV 20ML VIAL SC ONE (13:45)
[2018-09-14] MEDS ORDERED: ADACEL/BOOSTRIX VACCINE (DIPHTH/PERTUSS/ACELL/TETANUS)0.5ML SYR (90715) IM ONE (13:45)
[2018-09-14 14:20] VITALS: BP 113/58
== END 2018-09-14 14:31 | disposition home or self-care (01) ==
LOC: M ED 12:03
DX: S61.511A Laceration without foreign body of right wrist, initial encounter (principal); W26.8XXA Contact with other sharp object(s), not elsewhere classified, initial encounter; Y92.89 Other specified places as the place of occurrence of the external cause; Y93.9 Activity, unspecified; Y99.0 Civilian activity done for income or pay; Z79.899 Other long term (current) drug therapy

== ENCOUNTER → 2019-03-27 | Outpatient (CLI) | payer MEDICAID, SELFPAY ==
[~2019-03-27] MED LIST: SUBO8MIS
== END ==
LOC: M OUTALCOH 09:36
PROVIDERS: ATTEND Psychiatry & Neurology Psychiatry
DX: F11.20 Opioid dependence, uncomplicated (principal)

== ENCOUNTER 2019-04-03 15:56 | Outpatient (RCR) | payer MEDICAID | END 2019-04-07 | LOC: M OUTALCOH 15:56 | PROVIDERS: ATTEND Psychiatry & Neurology Psychiatry | DX: F11.20 Opioid dependence, uncomplicated (principal); Z72.0 Tobacco use ==

== ENCOUNTER 2019-04-17 16:00 | Outpatient (RCR) | payer MEDICAID | END 2019-05-07 | LOC: M OUTALCOH 16:00 | PROVIDERS: ATTEND Psychiatry & Neurology Psychiatry | DX: F11.20 Opioid dependence, uncomplicated (principal) ==

== ENCOUNTER 2019-05-07 18:39 | Emergency (ER) | payer MEDICAID ==
[~2019-05-07] VITALS: Ht 188 cm; Wt 87.0 kg
[2019-05-07 18:40] VITALS: BP 136/88
== END 2019-05-07 19:50 | disposition left against medical advice (07) ==
LOC: M ED 18:39
DX: Z53.21 Procedure and treatment not carried out due to patient leaving prior to being seen by health care provider (principal)

== ENCOUNTER → 2019-07-02 | Outpatient (CLI) | payer MEDICAID | LOC: M OUTALCOH 08:31 | PROVIDERS: ATTEND Psychiatry & Neurology Psychiatry | DX: F11.20 Opioid dependence, uncomplicated (principal) ==

== ENCOUNTER 2020-02-08 09:50 | Emergency (ER) | payer MEDICAID, OTHER ==
[~2020-02-08] VITALS: Ht 188 cm; Wt 81.0 kg
--- NOTE | 2020-02-08 10:19 | REP ---
Clinical: Trauma. Injury. Technique: AP, lateral, bilateral oblique and sunrise views of the left knee. Findings: Prepatellar soft tissue swelling and possible effusion. No acute fracture or dislocation. Impression: Soft tissue swelling and possible effusion. Electronically Signed by Kvng Saleh MD 02/08/2020 10:11 A
[2020-02-08 11:31] LABS: BASO % 0.4 % (0.0-1.0); EOS # 0.2 10^3/uL (0.0-0.5); EOS % 2.3 % (0.0-3.0); HEMOGLOBIN 13.9 g/dl (13.5-17.5); LYMPH # 1.1 10^3/uL (1.5-5.0); MEAN CORPUSCULAR HEMOGLOBIN 30.5 pg (27.0-33.0); MEAN CORPUSCULAR HGB CONC 33.9 g/dl (32.0-36.5); MEAN CORPUSCULAR VOLUME 89.9 fl (80.0-96.0); MONO # 0.7 10^3/uL (0.0-0.8); MONO % 7.1 % (0.0-5.0); PLATELET COUNT, AUTOMATED 180 10^3/uL (150-450); RED BLOOD COUNT 4.56 10^6/uL (4.30-6.10); WHITE BLOOD COUNT 10.1 10^3/uL (4.0-10.0)
[2020-02-08 11:53] LABS: ERYTHROCYTE SEDIMENTATION RATE 8 mm/hr (0-15)
[2020-02-08 12:01] LABS: ALBUMIN 4.1 GM/DL (3.2-5.2); BILIRUBIN,DIRECT 0.2 MG/DL (0.0-0.2); BILIRUBIN,TOTAL 0.6 MG/DL (0.2-1.0); C REACTIVE PROTEIN QUANTITATIV 1.68 MG/DL (0.00-0.30); TOTAL PROTEIN 7.4 GM/DL (6.4-8.2)
[2020-02-08] MEDS ORDERED: NAPR-837 PO (12:46)
[2020-02-08 13:02] VITALS: BP 161/71
== END 2020-02-08 13:01 | disposition home or self-care (01) ==
LOC: M ED 09:50
DX: M70.42 Prepatellar bursitis, left knee (principal); F17.220 Nicotine dependence, chewing tobacco, uncomplicated; Z79.899 Other long term (current) drug therapy